=== PATIENT | female | born 1960 | race Caucasian/White ===

== ENCOUNTER 2017-02-09 06:05 | Inpatient (IN) | payer BC ==
[~2017-02-09] VITALS: Ht 162.6 cm; Wt 99.8 kg
--- NOTE | 2017-02-09 06:23 | PHYS DOC ---
Past Medical History Past Medical History: No Pertinent History Adult General Chief Complaint Chief Complaint: TRAUMA ALERT HPI HPI Patient is a 57 year old female who presents with left ankle deformity and right foot pain. Patient was stepping out of the house packing her car and plans to return to her home state of [place]. She stepped down wrong on her ankle gave out and she fell catching herself, she did not go completely to the ground. She denies hitting her head or having loss of consciousness. Her pain is localized to her left ankle and her right lateral foot. Review of Systems Review of Systems Constitutional: Denies fever or chills [] Eyes: Denies change in visual acuity, redness, or eye pain [] HENT: Denies nasal congestion or sore throat [] Respiratory: Denies cough or shortness of breath [] Cardiovascular: No additional information not addressed in HPI [] GI: Denies abdominal pain, nausea, vomiting, bloody stools or diarrhea [] : Denies dysuria or hematuria [] Musculoskeletal: Denies back pain Integument: Denies rash or skin lesions [] Neurologic: Denies headache, focal weakness or sensory changes [] Current Medications Current Medications Current Medications Medications (Trade) Dose Ordered Sig/Bharati Start Time Stop Time Status Last Admin Dose Admin Acetaminophen (Tylenol) 650 mg PRN Q4HRS PRN 02/09/17 08:15 02/10/17 08:14 Fentanyl Citrate (Fentanyl 2ml Vial) 50 mcg PRN Q1HR PRN 02/09/17 08:15 02/10/17 08:14 Ketamine HCl 50 mg 1X ONCE 02/09/17 06:45 02/09/17 06:46 DC 02/09/17 06:55 50 MG Lidocaine/ Epinephrine (Xylocaine 1%-Epi 1:100,000) 20 ml 1X ONCE 02/09/17 06:45 02/09/17 06:46 DC 02/09/17 06:50 20 ML Propofol (Diprivan) 40 mg 1X ONCE 02/09/17 06:45 02/09/17 06:46 DC 02/09/17 06:53 40 MG Allergies Allergies Allergies Coded Allergies Type Severity Reaction Last Updated Verified No Known Drug Allergies 02/09/17 No Physical Exam Physical Exam Constitutional: Well developed, well nourished, no acute distress, non-toxic appearance. [] HENT: Normocephalic, atraumatic, bilateral external ears normal, oropharynx moist, no oral exudates, nose normal. [] Eyes: PERRLA, EOMI, conjunctiva normal, no discharge. [] Neck: Normal range of motion, no tenderness, supple, no stridor. [] Cardiovascular:Heart rate regular with regular rhythm, no murmur [] Lungs & Thorax: Bilateral breath sounds clear to auscultation, bilateral breath sounds Abdomen:soft, no tenderness, no masses, no pulsatile masses. [] Skin: Warm, dry, no erythema, no rash. [] Back: No tenderness, no CVA tenderness. [] Extremities: Left lower extremity with obvious deformity of the left ankle, skin appears intact, DP pulses 2+, normal sensory throughout the foot, contusion to the right foot on the anterior lateral surface, no tenderness of the base of the fifth metatarsal, wiggles toes, normal sensory, no other bony tenderness Neurologic: Alert and oriented X 3, normal motor function, normal sensory function, no focal deficits noted. [] Psychologic: Affect normal, judgement normal, mood normal. [] Current Patient Data Vital Signs Vital Signs Date Time Temp Pulse Resp B/P (MAP) Pulse Ox O2 Delivery O2 Flow Rate FiO2 02/09/17 07:00 72 15 157/77 (103) 95 Nasal Cannula 2.0 02/09/17 06:09 98.0 98.0 Lab Values Laboratory Tests Test 02/09/17 06:30 White Blood Count 6.0 x10^3/uL (4.0-11.0) Red Blood Count 4.40 x10^6/uL (3.50-5.40) Hemoglobin 13.4 g/dL (12.0-15.5) Hematocrit 40.5 % (36.0-47.0) Mean Corpuscular Volume 92 fL (79-100) Mean Corpuscular Hemoglobin 31 pg (25-35) Mean Corpuscular Hemoglobin Concent 33 g/dL (31-37) Red Cell Distribution Width 13.1 % (11.5-14.5) Platelet Count 193 x10^3/uL (140-400) Neutrophils (%) (Auto) 52 % (31-73) Lymphocytes (%) (Auto) 36 % (24-48) Monocytes (%) (Auto) 9 % (0-9) Eosinophils (%) (Auto) 2 % (0-3) Basophils (%) (Auto) 1 % (0-3) Neutrophils # (Auto) 3.1 x10^3uL (1.8-7.7) Lymphocytes # (Auto) 2.2 x10^3/uL (1.0-4.8) Monocytes # (Auto) 0.5 x10^3/uL (0.0-1.1) Eosinophils # (Auto) 0.1 x10^3/uL (0.0-0.7) Basophils # (Auto) 0.0 x10^3/uL (0.0-0.2) Prothrombin Time 12.3 SEC (11.7-14.0) Prothrombin Time INR 1.0 (0.8-1.1) Sodium Level 142 mmol/L (136-145) Potassium Level 3.7 mmol/L (3.5-5.1) Chloride Level 107 mmol/L (98-107) Carbon Dioxide Level 25 mmol/L (21-32) Anion Gap 10 (6-14) Blood Urea Nitrogen 16 mg/dL (7-20) Creatinine 0.9 mg/dL (0.6-1.0) Estimated GFR (Cockcroft-Gault) 64.8 Glucose Level 108 mg/dL (70-99) H Calcium Level 8.5 mg/dL (8.5-10.1) Laboratory Tests 02/09/17 06:30 Laboratory Tests 02/09/17 06:30 EKG EKG [] Radiology/Procedures Radiology/Procedures Indication: Joint dislocation Consent: Consent was obtained. Procedure: The pre-reduction exam showed distal perfusion and neurologic function to be normal.. The patient was placed in the appropriate position. Anesthesia/pain control ketofol and hematoma block with 1% lidocaine with epi applied in the joint space. Reduction of the left ankle was performed by traction/manipulation. Post reduction films were obtained and revealed satisfactory reduction. A post-reduction exam revealed distal perfusion and neurologic function to be normal. The affected area was immobilized with U- splint bulky mcgregor. The patient tolerated the procedure well. Complications: none.[] Sedation: ASA:1 Mallampati:3 Risks/benefits Explained Pt on end-tidal CO2, signed consent, on monitor I injected 50mg IV propofol, 40mg IV ketamine Pt tolerated well, procedure completed Pt does not recall procedure, returned to baseline without complications. X-ray left ankle shows a fracture dislocation with posterior position of the talus with respect to the ankle, x-ray right foot shows a spiral fracture of the fifth metatarsal, both interpreted by me Post reduction of the left ankle shows some good reposition of the ankle joint with distal fibular fracture, posterior fracture, interpreted by me Course & Med Decision Making Course & Med Decision Making Pertinent Labs and Imaging studies reviewed. (See chart for details) Patient was given IV fentanyl upon arrival. Prepared for conscious sedation to reduce the ankle. She does have good pulses in the foot Hematoma block performed of the ankle, consent obtained for conscious sedation using propofol and ketamine. hard-sole shoe placed on the R foot. Left splint placed by nv, tech and nursing U-splint with bulky mcgregor with good distal neurovascular status post splint. Left ankle was reduced, re-x-rayed. I spoke with Dr. June who stated that the patient could bear weight on the right foot if tolerated with crutches. This attempt was made but the patient was unable to bear any weight on that foot. Therefore we will admit for evaluation. Contacted Dr. Dai for admission who recommended observation stay, order placed. Dragon Disclaimer Dragon Disclaimer This electronic medical record was generated, in whole or in part, using a voice recognition dictation system. Departure Departure Impression: Primary Impression: Fracture dislocation of ankle Disposition: ADMITTED INPATIENT Admitting Physician: Garth Dai Condition: STABLE MAGDIEL HODGSON MD Feb 09, 2017 06:23
[2017-02-09] MEDS ORDERED: PROPOFOL 20 ML IV ONE (06:30)
[2017-02-09] MEDS ORDERED: KETAMINE HCL 500 MG/10 ML VIAL. ONE (06:30)
[2017-02-09] MEDS ORDERED: fentaNYL PF VIAL 100 MCG/2 ML VIAL IV ONE (06:30)
[2017-02-09 06:43] LABS: BASO % 1 % (0-3); EOS % 2 % (0-3); HEMATOCRIT 40.5 % (36.0-47.0); HEMOGLOBIN 13.4 g/dL (12.0-15.5); LYMPH # 2.2 x10^3/uL (1.0-4.8); LYMPH % 36 % (24-48); MEAN CORPUSCULAR HEMOGLOBIN 31 pg (25-35); MEAN CORPUSCULAR HGB CONC 33 g/dL (31-37); MEAN CORPUSCULAR VOLUME 92 fL (79-100); MONO % 9 % (0-9); NEUT % 52 % (31-73); PLATELET COUNT 193 x10^3/uL (140-400); RED CELL DISTRIBUTION WIDTH 13.1 % (11.5-14.5)
[2017-02-09] MEDS ORDERED: LIDOCAINE 1%/EPI 1:100,000 20 ML VIAL. INJ ONE (06:45)
[2017-02-09] MEDS ORDERED: PROPOFOL 10 MG/ML (50ML) VIAL. IV ONE (06:45)
[2017-02-09] MEDS ORDERED: KETAMINE HCL 500 MG/10 ML VIAL. IV ONE (06:45)
[2017-02-09 06:59] LABS: CALCIUM 8.5 mg/dL (8.5-10.1); CREATININE 0.9 mg/dL (0.6-1.0); GFR 64.8; POTASSIUM 3.7 mmol/L (3.5-5.1)
[2017-02-09 07:11] LABS: PROTHROMBIN TIME PATIENT 12.3 SEC (11.7-14.0)
--- NOTE | 2017-02-09 07:24 | RAD ---
EXAM: 1. Right foot 3 views. 2. Left ankle 3 views, 02/09/2017, 7:12 AM. 3. Left ankle 3 views, 02/09/2017, 6:40 AM. HISTORY: Fall, deformity. COMPARISON: None. FINDINGS: There is an oblique fracture of the right 5th metatarsal. There is mild superomedial displacement of the distal fracture fragment. 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 There is a small plantar calcaneal spur. The initial ankle injury demonstrates a fracture dislocation of the ankle mortise. A fracture of the distal fibula demonstrates posterior angulation and displacement. A posterior malleolar fracture is posteriorly and superiorly displaced. A medial malleolar fracture is not clearly demonstrated. The talus is mostly dislocated posteriorly. Soft tissue swelling is noted. There is a small plantar calcaneal spur. The 2nd ankle examination is status post reduction and splinting. Alignment of the ankle mortise is restored. The lateral and posterior malleolar fractures are now in near-anatomic alignment. No defects are appreciated along the talar dome. IMPRESSION: 1. Left ankle fracture dislocation involving the posterior and lateral malleoli in near-anatomic alignment status post reduction/splinting. 2. Mildly displaced oblique fracture of the right 5th metatarsal.
[2017-02-09] MEDS ORDERED: ACETAMINOPHEN 325 MG TABLET. PO PRN ×2 (08:15→14:30)
--- NOTE | 2017-02-09 08:59 | ACF ---
Admission Forms Criteria MUSCULOSKELETAL DISEASE GRG Clinical Indications for Admission to Inpatient Care (Place 'X' for any and all applicable criteria): Hospital admission is needed for appropriate care of the patient because of 1 or more of the following: [X]I. Fracture, dislocation, or other musculoskeletal injury requiring inpatient care(medical) as indicated by 1 or more of the following(4)(5)(6)(7) [ ]a) Vertebral fracture requiring observation for instability or neurologic compromise (8) [ ]b) Compartment syndrome (proven or cannot be ruled out during observation level of care) (9) [ ]c) Limb-threatening injury [ ]d) Major injury requiring inpatient stabilization such as traction initiation or external fixation before internal fixation or closure of complex or open fracture [X]e) Major injury requiring inpatient treatment after emergency or observation level care (as appropriate) [ ]f) Severe pain requiring acute inpatient management [ ]g) Injury with suspicion of abuse or neglect (eg., child, dependent elderly) [ ]II. Newly diagnosed or suspected bone, joint, or orthopedic device infection (e.g., osteomyelitis, septic arthritis) needing 1 or more of the following(1)(2)(3) [ ]a) IV antibiotics that cannot be initiated in other than inpatient setting (e.g., patient too unstable or home infusion not available) [ ]b) Device removal or replacement [ ]c) Bone or soft tissue debridement [ ]d) Joint drainage (drain placement or repetitive aspirations) [ ]III. Severe rheumatologic disease (e.g., systemic lupus erythematosus, rheumatoid arthritis) with complications or comorbidities (Also use Optimal Recovery Care Criteria or General Recovery Criteria as appropriate on the basis of predominant condition), including 1 or more of the following( 10)(11)(12)(13) [ ]a) Severe infection (e.g., [employer] TECHNICIAN infection, sepsis) (14) [ ]b) Respiratory complications, including 1 or more of the following : [ ]i) Pleural effusion with respiratory compromise [ ]ii) Pulmonary hypertension with congestive failure [ ]iii) Respiratory failure [ ]iv) Pulmonary hemorrhage (15) [ ]c) Hematologic disease, including 1 or more of the following: [ ]i) Coagulopathy with bleeding [ ]ii) Thrombosis with hypercoagulable state [ ]iii) Thrombotic thrombocytopenic purpura [ ]d) Cerebritis with seizures, psychosis, or other severe abnormalities [ ]e) Vertebral destruction with monitoring needed for cervical myelopathy& possible respiratory compromise [ ]f) Exacerbation that requires inpatient treatment (e.g., intravenous immunosuppression) (16) [ ]g) Acute renal failure [ ]h) Cerebritis with seizures, psychosis, Altered mental status, or other neurologic abnormalities [ ]i) Pericardial effusion with tamponade [ ]j) Vertebral destruction, with monitoring needed for cervical myelopathy and possible respiratory compromise [ ]IV. Severe vasculitis with complications or comorbidities (Also use Optimal Recovery Care Criteria General Recovery Criteria as appropriate on the basis of predominant condition), including 1 or more of the following(11)(12)(17)(18)(19)(20) [ ]a) Exacerbation that requires inpatient treatment (e.g., intravenous immunosuppression) (19)(21) [ ]b) Pulmonary hemorrhage (15) [ ]c) [employer] TECHNICIAN vasculitis with seizures, psychosis, Altered mental status that is severe or persistent, or other severe abnormalities (22) [ ]d) Cerebral infarction [ ]e) Gastrointestinal ischemia [ ]f) Gangrene or threatened amputation [ ]g) Renal failure (16) [ ]h) Other significant complications of vasculitis ( eg., tissue or organ ischemia, organ dysfunction ) [ ]V. Severe myopathy as indicated by 1 or more of the following (28)(29) [ ]a) New onset of airway compromise or inability to swallow [ ]b) Respiratory deterioration with observation needed for impending respiratory failure [ ]c) Exacerbation that requires inpatient treatment (e.g., intravenous immunosuppression) [ ]. Severe crystal gout (arthropathy) indicated by 1 or more of the following (23)(24) [ ]a) Severe pain requiring acute inpatient management [ ]b) Exacerbation that requires inpatient treatment (e.g., intravenous treatment) [ ]VII.Rhabdomyolysis and 1 or more of the following (25)(26)(27) [ ]a) Acute renal failure [ ]b) Need for intravenous hydration after emergency or observation level care (as appropriate) [ ]c) Inability to maintain oral hydration [ ]d) Change in mental status [ ]e) Electrolyte abnormality that remains after emergency or observation level care (as appropriate) [ ]VIII Post amputation complication, as indicated by ANY ONE of the following [ ]a) Infection [ ]b) Dehiscence [ ]c) Myodesis failure [ ]IX. Severe pain requiring acute inpatient management due to musculoskeletal condition [ ]X. Musculoskeletal Disease and ALL of the following: [ ]a) Symptom or finding for which emergency and observation care have failed or are not considered appropriate (Use General Criteria: Observation Care as appropriate) [ ]b) Presence of ANY ONE of the following [ ]i) A General Admission Criteria [ ]ii) A Pediatric General Admission Criteria The original [facility] [address] content created by [facility] [employer] has been revised. The portions of the content which have been revised are identified through the use of italic text or in bold, and [facility] has neither reviewed nor approved the modified material. All other unmodified content is copyright [facility]. Please see references footnoted in the original [facility] edition 2016 Admission Criteria Met?: Yes DALLAS DE LEON Feb 09, 2017 08:59
[2017-02-09 09:10] VITALS: BP 133/75
[2017-02-09] MEDS: fentaNYL PF VIAL 100 MCG/2 ML VIAL IV PRN ×2 (09:38→13:23)
[2017-02-09 11:00] VITALS: BP 138/77
[2017-02-09] MEDS ORDERED: DOCUSATE SODIUM 100 MG CAPSULE. PO SCH (11:15)
[2017-02-09] MEDS ORDERED: oxyCODONE/APAP 5/325 1 TAB TABLET PO PRN (11:15)
[2017-02-09] MEDS ORDERED: HYDROcodone/APAP 5/325MG 1 TAB TABLET PO PRN (14:30)
[2017-02-09] MEDS ORDERED: ALBUTEROL SULFATE 2.5 MG/3 ML NEBU. NEB PRN (14:30)
[2017-02-09] MEDS ORDERED: hydrALAZINE 20 MG/ML VIAL. IVP PRN (14:30)
[2017-02-09] MEDS ORDERED: ONDANSETRON PF 4 MG/2 ML VIAL. IV PRN (14:30)
--- NOTE | 2017-02-09 14:59 | PDOC1 ---
History and Physical Current Problem List Problem List Problems Medical Problems: (1) Fracture dislocation of ankle Status: Acute Current Medications Current Medications Current Medications Medications (Trade) Dose Ordered Sig/Bharati Start Time Stop Time Status Last Admin Dose Admin Acetaminophen (Tylenol) 325 mg PRN Q6HRS PRN 02/09/17 14:30 Acetaminophen/ Hydrocodone Bitart (Lortab 5/325) 1 tab PRN Q6HRS PRN 02/09/17 14:30 Albuterol Sulfate (Ventolin Neb Soln) 2.5 mg PRN Q4HRS PRN 02/09/17 14:30 Docusate Sodium (Colace) 100 mg BID 02/09/17 11:15 02/09/17 13:24 100 MG Fentanyl Citrate (Fentanyl 2ml Vial) 50 mcg PRN Q1HR PRN 02/09/17 08:15 02/10/17 08:14 02/09/17 13:23 50 MCG Hydralazine HCl (Apresoline) 10 mg PRN Q4HRS PRN 02/09/17 14:30 Ketamine HCl 50 mg 1X ONCE 02/09/17 06:45 02/09/17 06:46 DC 02/09/17 06:55 50 MG Lidocaine/ Epinephrine (Xylocaine 1%-Epi 1:100,000) 20 ml 1X ONCE 02/09/17 06:45 02/09/17 06:46 DC 02/09/17 06:50 20 ML Ondansetron HCl (Zofran) 4 mg PRN Q8HRS PRN 02/09/17 14:30 Oxycodone/ Acetaminophen (Percocet 5/325) 1 tab PRN Q3HRS PRN 02/09/17 11:15 02/09/17 13:28 1 TAB Propofol (Diprivan) 40 mg 1X ONCE 02/09/17 06:45 02/09/17 06:46 DC 02/09/17 06:53 40 MG Allergies Allergies Allergies Coded Allergies Type Severity Reaction Last Updated Verified No Known Drug Allergies 02/09/17 No ROS Review of System CONSTITUTIONAL: No fever or chills EYES: No recent changes SKIN: No rash or itching CARDIOVASCULAR: No chest pain, syncope, palpitations, or edema RESPIRATORY: No SOB or cough GASTROINTESTINAL: No nausea, vomiting or abdominal pain NEUROLOGICAL: No headaches or weakness ENDOCRINE: No cold or heat intolerance GENITOURINARY: No urgency or frequency of urination MUSCULOSKELETAL: fall, left ankle pain LYMPHATICS: No enlarged lymph nodes PSYCHIATRIC: No anxiety or depression Physical Exam Physical Exam GEN.: No apparent distress. Alert and oriented. HEENT: Head is normocephalic, atraumatic NECK: Supple. no JVD LUNGS: Clear to auscultation. normal airflow. HEART: RRR, S1, S2 present. Peripheral pulses intact ABDOMEN: Soft, nontender. Positive bowel sounds. EXTREMITIES: Without any cyanosis, sensations intact. NEUROLOGIC: Normal speech, normal tone PSYCHIATRIC: Normal affect, normal mood. SKIN: Vitals Vitals Vital Signs Date Time Temp Pulse Resp B/P (MAP) Pulse Ox O2 Delivery O2 Flow Rate FiO2 02/09/17 14:30 18 Room Air 02/09/17 11:00 98.4 60 138/77 (97) 99 98.4 02/09/17 08:55 2.0 Labs Labs Laboratory Tests Test 02/09/17 06:30 White Blood Count 6.0 x10^3/uL (4.0-11.0) Red Blood Count 4.40 x10^6/uL (3.50-5.40) Hemoglobin 13.4 g/dL (12.0-15.5) Hematocrit 40.5 % (36.0-47.0) Mean Corpuscular Volume 92 fL (79-100) Mean Corpuscular Hemoglobin 31 pg (25-35) Mean Corpuscular Hemoglobin Concent 33 g/dL (31-37) Red Cell Distribution Width 13.1 % (11.5-14.5) Platelet Count 193 x10^3/uL (140-400) Neutrophils (%) (Auto) 52 % (31-73) Lymphocytes (%) (Auto) 36 % (24-48) Monocytes (%) (Auto) 9 % (0-9) Eosinophils (%) (Auto) 2 % (0-3) Basophils (%) (Auto) 1 % (0-3) Neutrophils # (Auto) 3.1 x10^3uL (1.8-7.7) Lymphocytes # (Auto) 2.2 x10^3/uL (1.0-4.8) Monocytes # (Auto) 0.5 x10^3/uL (0.0-1.1) Eosinophils # (Auto) 0.1 x10^3/uL (0.0-0.7) Basophils # (Auto) 0.0 x10^3/uL (0.0-0.2) Prothrombin Time 12.3 SEC (11.7-14.0) Prothromb Time International Ratio 1.0 (0.8-1.1) Sodium Level 142 mmol/L (136-145) Potassium Level 3.7 mmol/L (3.5-5.1) Chloride Level 107 mmol/L (98-107) Carbon Dioxide Level 25 mmol/L (21-32) Anion Gap 10 (6-14) Blood Urea Nitrogen 16 mg/dL (7-20) Creatinine 0.9 mg/dL (0.6-1.0) Estimated GFR (Cockcroft-Gault) 64.8 Glucose Level 108 mg/dL (70-99) Calcium Level 8.5 mg/dL (8.5-10.1) Laboratory Tests Test 02/09/17 06:30 White Blood Count 6.0 x10^3/uL (4.0-11.0) Red Blood Count 4.40 x10^6/uL (3.50-5.40) Hemoglobin 13.4 g/dL (12.0-15.5) Hematocrit 40.5 % (36.0-47.0) Mean Corpuscular Volume 92 fL (79-100) Mean Corpuscular Hemoglobin 31 pg (25-35) Mean Corpuscular Hemoglobin Concent 33 g/dL (31-37) Red Cell Distribution Width 13.1 % (11.5-14.5) Platelet Count 193 x10^3/uL (140-400) Neutrophils (%) (Auto) 52 % (31-73) Lymphocytes (%) (Auto) 36 % (24-48) Monocytes (%) (Auto) 9 % (0-9) Eosinophils (%) (Auto) 2 % (0-3) Basophils (%) (Auto) 1 % (0-3) Neutrophils # (Auto) 3.1 x10^3uL (1.8-7.7) Lymphocytes # (Auto) 2.2 x10^3/uL (1.0-4.8) Monocytes # (Auto) 0.5 x10^3/uL (0.0-1.1) Eosinophils # (Auto) 0.1 x10^3/uL (0.0-0.7) Basophils # (Auto) 0.0 x10^3/uL (0.0-0.2) Prothrombin Time 12.3 SEC (11.7-14.0) Prothromb Time International Ratio 1.0 (0.8-1.1) Sodium Level 142 mmol/L (136-145) Potassium Level 3.7 mmol/L (3.5-5.1) Chloride Level 107 mmol/L (98-107) Carbon Dioxide Level 25 mmol/L (21-32) Anion Gap 10 (6-14) Blood Urea Nitrogen 16 mg/dL (7-20) Creatinine 0.9 mg/dL (0.6-1.0) Estimated GFR (Cockcroft-Gault) 64.8 Glucose Level 108 mg/dL (70-99) Calcium Level 8.5 mg/dL (8.5-10.1) VTE Prophylaxis Ordered VTE Prophylaxis Devices: Yes VTE Pharmacological Prophylaxi: Yes JADE HIGHTOWER MD Feb 09, 2017 14:59
[2017-02-09 15:00] VITALS: BP 128/65
--- NOTE | 2017-02-10 05:00 | CONS ---
DATE OF CONSULTATION: 02/09/2017 CHIEF COMPLAINT: Left ankle pain. HISTORY OF PRESENT ILLNESS: The patient is a very pleasant 57-year-old female visiting family from her home in [place] when she slipped out of the house and noted that she twisted her left ankle and was brought in because of pain and deformity. She denies hitting her head on the way down. She tells me she also twisted her right foot and has pain laterally at her right foot. She had a reduction and splinting performed of her ankle fracture dislocation at another Emergency Department and tells me that it greatly helped her pain. ALLERGIES: None. MEDICATIONS: Reviewed, please see MRAD. REVIEW OF SYSTEMS: Twelve point review of systems negative except as per HPI. PAST MEDICAL HISTORY: Healthy. PAST SURGICAL HISTORY: None. FAMILY HISTORY: Noncontributory. SOCIAL HISTORY: Lives in [place]. No tobacco. PHYSICAL EXAMINATION: GENERAL: The patient alert and oriented, in no acute distress while at rest. She is examined lying in hospital bed. HEENT: Head, normocephalic, atraumatic. Extraocular muscles are intact. CARDIOVASCULAR: Regular rate and rhythm. Radial pulses 2+. LUNGS: Respirations are unlabored with symmetric chest rise. ABDOMEN: Soft and nondistended. EXTREMITIES: Examination of left lower extremity reveals she is in a splint. She can wiggle her toes. She has a large amount of edema in the dorsum of foot and forefoot. Sensation intact to light touch. Good capillary refill at her toes on the left. She is on a postop shoe on the right with edema and tenderness at the lateral column of her right foot. She can wiggle her toes. Normal sensation in her forefoot. Dorsalis pedis 2+ on the right. IMAGIN. X-rays are reviewed. She has a spiral right fifth metatarsal fracture. 2. She has a left ankle fracture dislocation involving the lateral malleolus and posterior malleolus. The reduction was performed well. IMPRESSION: 1. Closed left ankle fracture dislocation. 2. Closed right fifth metatarsal spiral fracture. PLAN: She can weightbear in a short Cam boot and we are asking her to get her fit for that on the right side. She should be nonweightbearing left lower extremity. I think there is too much edema around her foot and ankle to allow for any operative intervention in the next year or two. I did discuss getting a followup with an orthopedist back at home and she is agreeable with this plan. I will see if she is able to mobilize at all here today and assist with her pain control and go from there. From my standpoint, she can be discharged once comfortable and able to be more mobile. HELADIO GUDAALUPE MD DR: DIEGO/jono JOB#: [id number] / [id number] KYLEE
--- NOTE | 2017-02-11 13:25 | SSS ---
ADMIT DATE: 02/09/2017 CHIEF COMPLAINT: Left ankle pain. HISTORY OF THE PRESENT ILLNESS: This is a 57-year-old female patient with no comorbid conditions who visited from [place], slipped out of the house and twisted her left ankle and developed immediate deformity and pain. Her pain is intractable in nature when she came to the ER, and she was placed in a splint, and pain has been controlled now with current pain medications, and also she was placed on oral medications. She was already evaluated by Orthopedics for left ankle fracture and dislocation. PAST MEDICAL HISTORY: None. PAST SURGICAL HISTORY: None. FAMILY HISTORY: None. MEDICATIONS: Reviewed and reconciled. Please see MRAD. ALLERGIES: NKDA. REVIEW OF SYSTEMS: Please see my electronic H and P. PHYSICAL EXAMINATION: Please see my electronic H and P. SOCIAL HISTORY: No smoking, lives in [place]. No alcohol abuse. IMAGING STUDY: ____ x-ray showed spiral right fifth metatarsal fracture and left ankle fracture dislocation involving the lateral malleolus and posterior malleolus. ASSESSMENT AND PLAN: Closed left ankle fracture with dislocation and closed right foot metatarsal spiral fracture. PLAN: The patient has been evaluated by Orthopedics, and she has been placed in CAM boot, and as she has too much of swelling at this time, and she is not an immediate surgical candidate at this time, Dr. June evaluated the patient and recommended her to follow up with the Orthopedics at home. The patient has been provided resources such as CAM boot and crutches. She is also provided with some pain medications and discussed with the daughter. She already scheduled an appointment coming Wednesday for surgery. Today, she is deemed clinically stable enough to go home with some pain medications which have been provided. The patient is scheduled to leave tomorrow. As she is not driving, her is planning to drive. DISCHARGE DISPOSITION: Home. DISCHARGE CONDITION: Stable. DISCHARGE INSTRUCTIONS: Follow up with Orthopedics in [place] on Wednesday. Total time spent for discharge and H and P is one hour. JADE HIGHTOWER MD DR: CHARLES/jono JOB#: [id number] / [id number]
== END 2017-02-09 20:22 | disposition home or self-care (01) | DRG 563 ==
LOC: ER 06:05 → 4 NORTH 08:13
PROVIDERS: ADMIT Internal Medicine; ATTEND Internal Medicine
DX: S92.351A Displaced fracture of fifth metatarsal bone, right foot, initial encounter for closed fracture (principal); S93.06XA Dislocation of unspecified ankle joint, initial encounter; S82.892A Other fracture of left lower leg, initial encounter for closed fracture; M21.962 Unspecified acquired deformity of left lower leg; X50.1XXA Overexertion from prolonged static or awkward postures, initial encounter
CPT/HCPCS: 36415; 73610; 73630; 80048; 85027; 85610; 96374; 96375; G0379; J2704; J3010; J3490; 99285-25